=== PATIENT | male | born 1990 | race Caucasian/White ===

== ENCOUNTER 2017-06-15 20:37 | Emergency (ER) | payer MEDICAID ==
--- NOTE | 2017-06-15 21:44 | Emergency Department Record ---
History of Present Illness - General Chief Complaint: Shortness of breath Stated Complaint: SHARP PAIN RT SIDE OF CHEST,SETVE Source: Patient, Family Mode of Arrival: Ambulatory Limitations: No limitations - History of Present Illness Initial Comments: 26 yo male presents with cough with right sided chest pain for one week. He does have a history of collapsed lung three times. [facility]. No fever. No sputum. The cough is dry. No asthma. He is a smoker and continues to smoke. No PCP. The pain is mild if still and worse with cough. MD Complaint: Cough, Pain with inspiration Onset/Timin -: Week(s) Severity: Mild Severity scale (1-10): 6 Quality: Throbbing Consistency: Intermittent Improves With: Nothing Worsens With: Coughing, Exertion Known History Of: Other Context: Other Associated Symptoms: Chest pain, Cough Treatments Prior to Arrival: None - Related Data Previous Rx's Medication Instructions Recorded Hydrocodone/Acetaminophen [[place] 1 tab PO BID PRN #12 tab 06/15/17 5mg/325mg] Naproxen [Naprosyn] 500 mg PO Q12H #20 tab. 06/15/17 Allergies Allergy/AdvReac Type Severity Reaction Status Date / Time morphine Allergy HIVES Verified 06/15/17 21:49 Travel Screening - Travel/Exposure Within Last 30 Days Have you traveled within the last 30 days?: No Review of Systems Constitutional: Denies: Chills, Fever, Malaise, Weakness Eyes: Denies: Eye discharge ENT: Denies: Congestion, Throat pain Respiratory: Reports: Cough, Dyspnea. Denies: Hemoptysis, Stridor, Wheezes Cardiovascular: Reports: As per HPI, Chest pain, Dyspnea on exertion. Denies: Palpitations, Syncope Endocrine: Denies: Fatigue Gastrointestinal: Denies: Abdominal pain, Diarrhea, Nausea, Vomiting Genitourinary: Denies: Dysuria, Frequency, Hematuria Musculoskeletal: Denies: Arthralgia, Back pain, Myalgia Skin: Denies: Bruising, Change in color, Rash Neurological: Denies: Confusion, Headache Psychiatric: Denies: Anxiety Hematological/Lymphatic: Denies: Blood Clots, Easy bleeding, Easy bruising, Swollen glands Past Medical History - SOCIAL HISTORY Smoking Status: Light tobacco smoker (<10/day) Alcohol Use: Rare Drug Use: None - RESPIRATORY Hx Respiratory Disorders: Yes Hx Asthma: Yes Comment:: Collapsed lung x3 - CARDIOVASCULAR Hx Cardio Disorders: No - NEURO Hx Neuro Disorders: No - GI Hx GI Disorders: No - Hx Genitourinary Disorders: No - ENDOCRINE Hx Endocrine Disorders: No - MUSCULOSKELETAL Hx Musculoskeletal Disorders: No - PSYCH Hx Psych Problems: No - HEMATOLOGY/ONCOLOGY Hx Hematology/Oncology Disorders: No Family Medical History Any Significant Family History?: No Physical Exam - General General Appearance: Alert, Oriented x3, Cooperative, No acute distress Limitations: No limitations - Head Head exam: Atraumatic, Normocephalic, Normal inspection - Eye Eye exam: Normal appearance, PERRL. negative: Conjunctival injection, Scleral icterus - ENT ENT exam: Normal exam, Mucous membranes moist Ear exam: Normal external inspection Nasal Exam: Normal inspection Mouth exam: Normal external inspection - Neck Neck exam: Normal inspection, Full ROM. negative: Tenderness - Respiratory Respiratory exam: Chest wall tenderness, Decreased breath sounds (bialterally decreased). negative: Normal lung sounds bilaterally, Accessory muscle use, Prolonged expiratory, Respiratory distress, Rhonchi, Stridor, Wheezes - Cardiovascular Cardiovascular Exam: Regular rate, Normal rhythm, Normal heart sounds Peripheral Pulses: 2+: Radial (R), Radial (L) - GI/Abdominal GI/Abdominal exam: Soft - Rectal Rectal exam: Deferred - exam: Deferred - Extremities Extremities exam: Normal inspection, Full ROM, Normal capillary refill. negative: Tenderness - Back Back exam: Reports: Normal inspection, Full ROM. Denies: Muscle spasm, Rash noted, Tenderness - Neurological Neurological exam: Alert, Normal gait, Oriented X3 - Psychiatric Psychiatric exam: Normal affect, Normal mood - Skin Skin exam: Dry, Intact, Normal color, Warm Course Vital Signs 06/15/17 21:17 Temperature 98.8 F Pulse Rate [ 83 Pulse Ox Probe] Respiratory 18 Rate Blood Pressure 146/72 [Left Arm] Pulse Ox 98 - Reevaluation(s) Reevaluation #1: 06/15/17 21:45 Vitals reviewed No acute changes. No hypoxia. EKG NSR rate 81, intervals normal, axis normal, NS j point elevation (very thin male) likely normal early repolarization. No old. 06/15/17 21:47 06/15/17 22:32 The patient is PERC negative The chest XR is negative The CBC and CMP are negative 06/15/17 22:32 Medical Decision Making - Lab Data Result diagrams: 06/15/17 21:26 06/15/17 21:26 Disposition Disposition: Discharge Clinical Impression: Pleuritic chest pain Disposition: Home, Self-Care Condition: (1) Good Instructions: Pleurisy (ED) Additional Instructions: Stop smoking Return or be seen in the next 1-2 days if not improved Return or be seen immediately if worse Prescriptions: Hydrocodone/Acetaminophen [[place] 5mg/325mg] 1 tab PO BID PRN #12 tab PRN Reason: Pain - General Naproxen [Naprosyn] 500 mg PO Q12H #20 tab.dr Forms: Patient Portal Access Time of Disposition: 22:45 Quality - Quality Measures Quality Measures: N/A - Blood Pressure Screening Does Patient Have Any of the Following: No Blood Pressure Classification: Pre-Hypertensive BP Reading Systolic Measurement: 133 Diastolic Measurement: 74 Screening for High Blood Pressure: < Pre-Hypertensive BP, F/U Documented > [ G8950] Pre-Hypertensive Follow-up Interventions: Referral to alternative/primary care provider.
[2017-06-15] MEDS ORDERED: MORPHINE SULFATE 5 MG/ML PFS IVP ONE (21:45)
[2017-06-15] MEDS ORDERED: KETOROLAC 30 MG/ML VIAL IVP ONE (21:45)
[2017-06-15] MEDS ORDERED: ACETAMINOPHEN 1,000 MG/100 ML BTL IVPB ONE (21:49)
[2017-06-15 22:09] LABS: BASO % 0.3 % (0-6); GRAN % 47.1 % (47-80); HEMATOCRIT 42.6 % (42.0-52.0); HEMOGLOBIN 14.7 gm/dl (14.0-18.0); LYMPH % 41.2 % (16-45); MEAN CELL VOLUME 88.6 fl (81-97); MEAN CORPUSCULAR HEMOGLOBIN 30.6 pg (27-33); MEAN CORPUSCULAR HGB CONC 34.5 g/dl (32-36); MEAN PLATELET VOLUME 11.4 fl (7.4-10.4); MONO % 9.4 % (0-9); PLATELET COUNT 210 K/uL (130-400); RED BLOOD COUNT 4.81 M/uL (4.40-5.70); RED CELL DISTRIBUTION WIDTH 13.4 % (11.5-14.5)
[2017-06-15 22:22] LABS: BLOOD UREA NITROGEN 8 mg/dL (6-20); CREATININE 0.9 mg/dL (0.7-1.2); EST GLOMERULAR FILTRATION RATE > 60 mL/min; INR 1.03; PARTIAL THROMBOPLASTIN TIME 27.5 SECONDS (24.5-39.1); PROTHROMBIN TIME (PATIENT) 11.1 SECONDS (9.5-12.1)
[2017-06-15 22:25] LABS: GLUCOSE,RANDOM 79 mg/dL (74-109)
[2017-06-15] MEDS ORDERED: HYDROCODONE/APAP 5/325MG TABLET PO ONE (22:45)
--- NOTE | 2017-06-16 15:15 | RADIOLOGY REPORT ---
EXAM: CHEST, TWO VIEWS HISTORY: DIFFICULTY IN BREATHING. TECHNIQUE: Frontal and lateral views of the chest were performed. FINDINGS: The heart size is normal. The lung leblanc are clear. No pleural effusion. The osseous structures are normal. IMPRESSION: NEGATIVE CHEST EXAMINATION. JOB NUMBER: [id number] MTDD
== END 2017-06-15 23:00 | disposition home or self-care (01) ==
LOC: ER 20:37
DX: R07.89 Other chest pain (principal); R06.00 Dyspnea, unspecified; F17.210 Nicotine dependence, cigarettes, uncomplicated
CPT/HCPCS: 71020; 80048; 85025; 85610; 85730; 93005; 93010; 96374; 96375; 99284; J1885

== ENCOUNTER 2017-06-17 18:10 | Emergency (ER) | payer MEDICAID ==
[2017-06-17] MEDS ORDERED: KETOROLAC 30 MG/ML VIAL IVP ONE (18:39)
[2017-06-17] MEDS ORDERED: IPRATROPIUM/ALBUTEROL (0.5MG/3MG) NEB INH ONE (18:39)
[2017-06-17] MEDS ORDERED: 0.9 % SODIUM CHLORIDE 1000ML 500 ML IV SCH (18:45)
--- NOTE | 2017-06-17 18:46 | Emergency Department Record ---
History of Present Illness - General Chief Complaint: Difficulty Breathing Stated Complaint: CHEST PAIN Time Seen by Provider: 06/17/17 18:30 Source: Patient Mode of Arrival: EMS Limitations: No limitations - History of Present Illness Initial Comments: 26 yo male returns to ED for evaluation of "sharp chest pains" that began several days ago. Patient reports a history of pneumothorax s/p pleurodesis in the past, denies fevers or cough symptoms, but does report a history of asthma. Patient reports that his pain has been intermittent, but when present, he is unable to take deep breaths and wheeze. Patient denies recent illness symptoms. MD Complaint: Chest pain Onset/Timin -: Days(s) Severity: Moderate Severity scale (1-10): 7 Quality: Aching, Sharp Consistency: Constant, Getting worse Improves With: Rest Worsens With: Coughing, Inspiration, Movement Known History Of: Asthma Treatments Prior to Arrival: None - Related Data Home Oxygen Therapy: No Previous Rx's Medication Instructions Recorded Hydrocodone/Acetaminophen [[place] 1 tab PO BID PRN #12 tab 06/15/17 5mg/325mg] Naproxen [Naprosyn] 500 mg PO Q12H #20 tab. 06/15/17 Allergies Allergy/AdvReac Type Severity Reaction Status Date / Time morphine Allergy HIVES Verified 06/17/17 18:20 Travel Screening - Travel/Exposure Within Last 30 Days Have you traveled within the last 30 days?: No - Travel/Exposure Within Last Year Have you traveled outside the [place] in the last year?: No - Additonal Travel Details Have you been exposed to anyone with a communicable illness?: No - Travel Symptoms Symptom Screening: None Review of Systems Constitutional: Denies: Chills, Fever, Malaise, Night sweats Eyes: Denies: Eye discharge, Eye pain ENT: Denies: Congestion, Ear pain, Epistaxis Respiratory: Denies: Cough, Dyspnea Cardiovascular: Reports: Chest pain. Denies: Dyspnea on exertion, Palpitations , Paroxysmal nocturnal dyspnea Endocrine: Denies: Fatigue, Heat or cold intolerance Gastrointestinal: Denies: Abdominal pain, Nausea, Vomiting Genitourinary: Denies: Incontinence, Retention Musculoskeletal: Denies: Arthralgia, Back pain, Gout, Joint swelling Skin: Denies: Bruising, Change in color Neurological: Denies: Abnormal gait, Confusion, Headache Psychiatric: Denies: Anxiety Hematological/Lymphatic: Denies: Anemia, Blood Clots Past Medical History - SOCIAL HISTORY Smoking Status: Light tobacco smoker (<10/day) Alcohol Use: Rare Drug Use: None - RESPIRATORY Hx Respiratory Disorders: Yes Hx Asthma: Yes Comment:: Collapsed lung x3 - CARDIOVASCULAR Hx Cardio Disorders: No - NEURO Hx Neuro Disorders: No - GI Hx GI Disorders: No - Hx Genitourinary Disorders: No - ENDOCRINE Hx Endocrine Disorders: No - MUSCULOSKELETAL Hx Musculoskeletal Disorders: No - PSYCH Hx Depression: Yes Comment:: bipolar - HEMATOLOGY/ONCOLOGY Hx Hematology/Oncology Disorders: No Family Medical History Any Significant Family History?: Yes Physical Exam - General General Appearance: Alert, Oriented x3, Cooperative Limitations: No limitations - Head Head exam: Atraumatic, Normocephalic, Normal inspection Head exam detail: negative: Abrasion, Contusion, Denise's sign, General tenderness, Hematoma, Laceration - Eye Eye exam: Normal appearance. negative: Conjunctival injection, Periorbital swelling, Periorbital tenderness, Scleral icterus - ENT Ear exam: negative: Auricular hematoma, Auricular trauma Nasal Exam: negative: Active bleeding, Discharge, Dried blood Mouth exam: negative: Drooling, Laceration, Muffled voice, Tongue elevation - Neck Neck exam: Normal inspection. negative: Meningismus, Tenderness - Respiratory Respiratory exam: Normal lung sounds bilaterally. negative: Respiratory distress, Rhonchi, Stridor, Wheezes - Cardiovascular Cardiovascular Exam: Regular rate, Normal rhythm, Normal heart sounds - GI/Abdominal GI/Abdominal exam: Soft. negative: Pulsatile mass, Rebound, Rigid - Rectal Rectal exam: Deferred - exam: Deferred - Extremities Extremities exam: Normal inspection. negative: Pedal edema, Tenderness - Back Back exam: Denies: CVA tenderness (R), CVA tenderness (L) - Neurological Neurological exam: Alert, Normal gait, Oriented X3 - Psychiatric Psychiatric exam: Normal affect, Normal mood - Skin Skin exam: Normal color. negative: Abrasion Type of lesion: negative: abrasion Course Vital Signs 06/17/17 18:13 Temperature 98.8 F Pulse Rate 84 Respiratory 14 Rate Blood Pressure 122/68 Pulse Ox 98 - Reevaluation(s) Reevaluation #1: 06/17/17 18:53 EKG: NSR 66 Normal axis, normal intervals J-point elevation, no acute ST-T wave changes Unchanged from 06/15/17 Reevaluation #2: 06/17/17 19:34 Labs reviewed and are grossly unremarkable for an acute process. D-Dimer is negative. CXR: No acute process Patient was reassessed, playing a coloring game on his mobile phone and is well appearing on examination, was updated on all results,. Patient reports that duoneb did not significantly improve his symptoms, unlikely the result of an asthma exacerbation. Patient reports that he has Naprosyn at home for pleurisy , appears stable and comfortable on examination for discharge home at this time. Medical Decision Making - Lab Data Result diagrams: 06/17/17 18:45 06/17/17 18:45 Disposition Disposition: Discharge Clinical Impression: Pleuritic chest pain Disposition: Home, Self-Care Condition: (2) Stable Instructions: Pleurisy (ED) Additional Instructions: Return to ED if your symptoms worsen or if you have any concerns. Continue Naprosyn as directed. Follow-up with your family doctor in 3-5 days as directed. Forms: Patient Portal Access Time of Disposition: 19:40 Quality - Quality Measures Quality Measures: N/A - Blood Pressure Screening Does Patient Have Any of the Following: No Blood Pressure Classification: Pre-Hypertensive BP Reading Systolic Measurement: 122 Diastolic Measurement: 68 Screening for High Blood Pressure: < Pre-Hypertensive BP, F/U Documented > [ G8950] Pre-Hypertensive Follow-up Interventions: Referral to alternative/primary care provider.
[2017-06-17 18:52] LABS: BASO % 0.6 % (0-6); EOS % 3.1 % (0-6); GRAN % 41.1 % (47-80); HEMATOCRIT 41.5 % (42.0-52.0); HEMOGLOBIN 14.2 gm/dl (14.0-18.0); LYMPH % 46.1 % (16-45); MEAN CELL VOLUME 88.7 fl (81-97); MEAN CORPUSCULAR HEMOGLOBIN 30.3 pg (27-33); MEAN CORPUSCULAR HGB CONC 34.2 g/dl (32-36); MEAN PLATELET VOLUME 10.9 fl (7.4-10.4); MONO % 9.1 % (0-9); PLATELET COUNT 195 K/uL (130-400); RED BLOOD COUNT 4.68 M/uL (4.40-5.70); RED CELL DISTRIBUTION WIDTH 13.2 % (11.5-14.5); WHITE BLOOD COUNT W/O DIFF 4.8 K/uL (4.2-12.2)
[2017-06-17 19:07] LABS: BLOOD UREA NITROGEN 7 mg/dL (6-20); CREATININE 0.8 mg/dL (0.7-1.2); EST GLOMERULAR FILTRATION RATE > 60 mL/min; TOTAL PROTEIN 6.9 g/dL (6.6-8.7)
[2017-06-17 19:09] LABS: GLUCOSE,RANDOM 93 mg/dL (74-109)
[2017-06-17 19:12] LABS: ALBUMIN 4.6 g/dL (4.0-5.0); ALKALINE PHOSPHATASE 57 U/L (40-129); ALT/SGPT 17 U/L (<41); AST/SGOT 16 U/L (10.0-50.0)
--- NOTE | 2017-06-19 20:17 | RADIOLOGY REPORT ---
EXAM: CHEST 2 VIEWS HISTORY: CHEST PAIN. TECHNIQUE: PA and lateral views. COMPARISON: Two-view chest 06/15/17. Report of the prior study not as yet available within PACS. FINDINGS: Heart size is normal. No definite acute infiltrate seen. No pleural effusion or pneumothorax evident. Minor lower thoracic curve to the left may simply be due to positioning or spasm. IMPRESSION: MINOR LOWER THORACIC CURVE TO THE LEFT. NO DEFINITE ACUTE INFILTRATE SEEN. JOB NUMBER: [id number] MTDD
== END 2017-06-17 19:53 | disposition home or self-care (01) ==
LOC: ER 18:10
DX: R07.89 Other chest pain (principal); F17.210 Nicotine dependence, cigarettes, uncomplicated
CPT/HCPCS: 99284 ×2; 85025; 80053; 85379; 71020; 94640; 93005; 93010; J1885; J7030

== ENCOUNTER 2017-07-02 04:45 | Emergency (ER) | payer MEDICAID ==
[2017-07-02] MEDS ORDERED: IPRATROPIUM/ALBUTEROL (0.5MG/3MG) NEB INH ONE (04:48)
[2017-07-02] MEDS ORDERED: METHYLPREDNISOLONE PF 125MG/VIAL IVP ONE (04:48)
--- NOTE | 2017-07-02 04:58 | Emergency Department Record ---
History of Present Illness - General Chief Complaint: Shortness of breath Stated Complaint: CHEST PAIN Time Seen by Provider: 07/02/17 04:48 Source: Patient Mode of Arrival: Ambulatory Limitations: No limitations - History of Present Illness Initial Comments: 26 yo male presents with shortness breath, cough, and a right sided feeling like air is moving in his chest. He has a history of asthma and 3 prior spontaneous pneumothoracies. He is S/P pleurodesis at [facility] 2 years ago. He has had this pain since being seen in the ED on June 15. The symptoms fluctuate in intensity but have not resolved in the last 2.5 weeks. His most recent visit was the [facility] on 06.28.17. His CXR then was negative for acute process. He does continue to smoke. He has not take his Prednisone that he was prescribed. MD Complaint: "Asthma attack", Chest pain, Cough, Pain with inspiration, Shortness of breath -: Hour(s) Severity: Moderate Quality: Aching Improves With: Nothing Worsens With: Coughing, Inspiration Known History Of: Asthma Associated Symptoms: Chest pain, Cough Treatments Prior to Arrival: None - Related Data Previous Rx's Medication Instructions Recorded Hydrocodone/Acetaminophen [[place] 1 each PO Q8H #12 tablet 07/02/17 5-325 Tablet] Prednisone [Prednisone 20Mg] 20 mg PO BID #10 tab 07/02/17 Allergies Allergy/AdvReac Type Severity Reaction Status Date / Time morphine Allergy HIVES Verified 07/02/17 04:52 Review of Systems Constitutional: Denies: Chills, Fever, Malaise, Weakness Eyes: Denies: Eye discharge, Eye pain ENT: Denies: Congestion, Throat pain Respiratory: Reports: Cough, Dyspnea, Wheezes Cardiovascular: Reports: Chest pain. Denies: Dyspnea on exertion, Edema, Palpitations, Syncope Endocrine: Denies: Fatigue Gastrointestinal: Denies: Abdominal pain, Diarrhea, Nausea, Vomiting Genitourinary: Denies: Dysuria, Frequency, Hematuria Musculoskeletal: Denies: Arthralgia, Back pain, Myalgia, Neck pain Skin: Denies: Bruising, Change in color Neurological: Denies: Confusion, Headache Psychiatric: Denies: Anxiety Hematological/Lymphatic: Denies: Blood Clots, Easy bleeding, Easy bruising, Swollen glands Past Medical History - SOCIAL HISTORY Smoking Status: Light tobacco smoker (<10/day) Drug Use: None - RESPIRATORY Hx Respiratory Disorders: Yes Hx Asthma: Yes Comment:: Collapsed lung x3 - CARDIOVASCULAR Hx Cardio Disorders: No - NEURO Hx Neuro Disorders: No - GI Hx GI Disorders: No - Hx Genitourinary Disorders: No - ENDOCRINE Hx Endocrine Disorders: No - MUSCULOSKELETAL Hx Musculoskeletal Disorders: No - PSYCH Hx Depression: Yes Comment:: bipolar - HEMATOLOGY/ONCOLOGY Hx Hematology/Oncology Disorders: No Physical Exam - General General Appearance: Alert, Oriented x3, Cooperative, No acute distress Limitations: No limitations - Head Head exam: Normal inspection - Eye Eye exam: Normal appearance. negative: Conjunctival injection, Scleral icterus - ENT ENT exam: Normal exam, Mucous membranes moist, Normal orophraynx Ear exam: Normal external inspection. negative: External canal tenderness Nasal Exam: Normal inspection. negative: Sinus tenderness Mouth exam: Normal external inspection, Tongue normal Teeth exam: Normal inspection. negative: Dental caries Throat exam: Normal inspection. negative: Tonsillar erythema, Tonsillar exudate - Neck Neck exam: Normal inspection, Full ROM. negative: Tenderness - Respiratory Respiratory exam: Decreased breath sounds, Wheezes. negative: Normal lung sounds bilaterally, Accessory muscle use, Chest wall tenderness, Respiratory distress, Rhonchi, Stridor - Cardiovascular Cardiovascular Exam: Regular rate, Normal rhythm, Normal heart sounds Peripheral Pulses: 2+: Radial (R), Radial (L) - GI/Abdominal GI/Abdominal exam: Soft - Rectal Rectal exam: Deferred - exam: Deferred - Extremities Extremities exam: Normal inspection, Full ROM, Normal capillary refill. negative: Pedal edema, Tenderness - Back Back exam: Denies: CVA tenderness (R), CVA tenderness (L) - Neurological Neurological exam: Alert, Oriented X3 - Psychiatric Psychiatric exam: Normal affect, Normal mood - Skin Skin exam: Dry, Intact, Normal color, Warm Course The labs were reviewed. No acute changes. Given 4th encounter for the same symptoms this month I recommended CT of chest. Pt agrees. - Reevaluation(s) Reevaluation #1: 07/02/17 05:02 The vitals were reviewed No acute changes. No fever, hypoxia, tachycardia The EMR was reviewed for prior visits including 3 CXR this month for the symptoms 07/02/17 06:[address] scan was reviewed. No acute process. Small air filled cysts in lower lungs. Linear atelectasis. No pneumothorax. No Effusion. No PE. Medical Decision Making - Lab Data Result diagrams: 07/02/17 04:55 07/02/17 04:55 Disposition Disposition: Discharge Clinical Impression: Pleuritic chest pain Asthma exacerbation Qualifiers: Asthma severity: mild Asthma persistence: intermittent Qualified Code(s): J45.21 - Mild intermittent asthma with (acute) exacerbation Disposition: Home, Self-Care Condition: (1) Good Instructions: Asthma (ED), Pleurisy (ED) Additional Instructions: Call your doctors for close follow up of this ED visit Take the Prednisone as directed Stop smoking. This is causing early damage to your lungs. Prescriptions: Hydrocodone/Acetaminophen [[place] 5-325 Tablet] 1 each PO Q8H #12 tablet Prednisone [Prednisone 20Mg] 20 mg PO BID #10 tab Forms: Patient Portal Access Time of Disposition: 06:03 Quality - Quality Measures Quality Measures: N/A - Blood Pressure Screening Does Patient Have Any of the Following: No Blood Pressure Classification: Pre-Hypertensive BP Reading Systolic Measurement: 134 Diastolic Measurement: 89 Screening for High Blood Pressure: < Pre-Hypertensive BP, F/U Documented > [ G8950] Pre-Hypertensive Follow-up Interventions: Referral to alternative/primary care provider.
[2017-07-02 05:02] LABS: BASO % 0.4 % (0-6); EOS % 3.1 % (0-6); GRAN % 37.2 % (47-80); HEMATOCRIT 43.6 % (42.0-52.0); HEMOGLOBIN 15.1 gm/dl (14.0-18.0); MEAN CELL VOLUME 89.2 fl (81-97); MEAN CORPUSCULAR HEMOGLOBIN 30.9 pg (27-33); MEAN CORPUSCULAR HGB CONC 34.6 g/dl (32-36); MEAN PLATELET VOLUME 11.2 fl (7.4-10.4); MONO % 9.3 % (0-9); PLATELET COUNT 202 K/uL (130-400); RED BLOOD COUNT 4.89 M/uL (4.40-5.70); RED CELL DISTRIBUTION WIDTH 13.5 % (11.5-14.5); WHITE BLOOD COUNT W/O DIFF 8.1 K/uL (4.2-12.2)
[2017-07-02 05:14] LABS: INR 0.95; PARTIAL THROMBOPLASTIN TIME 27.3 SECONDS (24.5-39.1); PROTHROMBIN TIME (PATIENT) 10.3 SECONDS (9.5-12.1)
[2017-07-02 05:16] LABS: BLOOD UREA NITROGEN 11 mg/dL (6-20); CREATININE 0.9 mg/dL (0.7-1.2); EST GLOMERULAR FILTRATION RATE > 60 mL/min
[2017-07-02 05:19] LABS: GLUCOSE,RANDOM 105 mg/dL (74-109)
--- NOTE | 2017-07-02 23:47 | CT ANGIOGRAM REPORT ---
EXAM: CT ANGIOGRAM CHEST CTA w contrast HISTORY: CHEST PAIN AND CHEST WALL PAIN. PREVIOUS SURGERY SIX MONTHS PRIOR. EVALUATE FOR PULMONARY EMBOLUS. REPORTED SURGERY FOR PLEURODESIS. TECHNIQUE: Routine CT angiography images of the chest were obtained following intravenous administration of contrast. Amount and type of contrast in the medical record. 3D/MIP images obtained for further assessment. COMPARISON: None. FINDINGS: Heart is not enlarged. No pericardial effusion. Aorta enhances normally with contrast. No central filling defects within the pulmonary arteries to suggest acute PE. No mediastinal or hilar lymph node enlargement. Lungs are clear without focal consolidation, pleural effusion, or pneumothorax. Tiny cysts are noted within the lungs, especially right lower lobe. Visualized upper abdomen is unremarkable. No acute osseous abnormality. IMPRESSION: NO ACUTE INTRATHORACIC ABNORMALITY. SPECIFICALLY, NO EVIDENCE FOR PULMONARY EMBOLUS. JOB NUMBER: [id number] MTDD
== END 2017-07-02 06:12 | disposition home or self-care (01) ==
LOC: ER 04:45
DX: R07.89 Other chest pain (principal); J45.21 Mild intermittent asthma with (acute) exacerbation; R06.02 Shortness of breath; F17.210 Nicotine dependence, cigarettes, uncomplicated
CPT/HCPCS: 99284 ×2; 96374; 85025; 85730; 85610; 80048; 71275; 94640; Q9967; J2930

== ENCOUNTER 2017-07-13 22:53 | Emergency (ER) | payer MEDICAID ==
--- NOTE | 2017-07-13 23:12 | Emergency Department Record ---
History of Present Illness - General Chief Complaint: Back Pain/Injury Stated Complaint: BACK PAIN Time Seen by Provider: 07/13/17 23:02 Source: Patient Mode of Arrival: Ambulatory Limitations: No limitations - History of Present Illness Initial Comments: The patient is here due to a one day hx of low back pain. The pain was present when the patient woke up this AM. It is a sharp aching pain in the upper lumbar area that intermittently radiates to the sides. Movement and bending and twisting increases the pain. There is no radiation of pain down the legs and no leg numbness, weakness or any bowel or bladder issues. The patient states he has a long hx of similar pain for years and it flares up every now and then. He denies any injury, fall or trauma. The patient states the pain occurs every other month or so. MD Complaint: Back pain Onset/Timin -: Hour(s) Place: Home Severity: Moderate Severity scale (1-10): 7 Improves With: None Worsens With: None Associated Symptoms: Denies other symptoms Treatments Prior to Arrival: Other Treatment Prior to Arrival Comment:: "nothing" - Related Data Previous Rx's Medication Instructions Recorded Cyclobenzaprine HCl [Flexeril] 10 mg PO TID PRN #20 tablet 07/13/17 Naproxen [Naprosyn] 500 mg PO BID #14 tablet. 07/13/17 Allergies Allergy/AdvReac Type Severity Reaction Status Date / Time morphine Allergy HIVES Verified 07/13/17 23:02 Travel Screening - Travel/Exposure Within Last 30 Days Have you traveled within the last 30 days?: No - Travel/Exposure Within Last Year Have you traveled outside the [place] in the last year?: No - Additonal Travel Details Have you been exposed to anyone with a communicable illness?: No - Travel Symptoms Symptom Screening: None Review of Systems Constitutional: Denies: Chills, Fever Eyes: Denies: Eye discharge ENT: Denies: Congestion Respiratory: Denies: Cough, Dyspnea Past Medical History - SOCIAL HISTORY Smoking Status: Light tobacco smoker (<10/day) Alcohol Use: None Drug Use: None - RESPIRATORY Hx Respiratory Disorders: Yes Hx Asthma: Yes Comment:: Collapsed lung x3 - CARDIOVASCULAR Hx Cardio Disorders: No - NEURO Hx Neuro Disorders: No - GI Hx GI Disorders: No - Hx Genitourinary Disorders: No - ENDOCRINE Hx Endocrine Disorders: No - MUSCULOSKELETAL Hx Musculoskeletal Disorders: No - PSYCH Hx Psych Problems: No Hx Depression: Yes Comment:: bipolar - HEMATOLOGY/ONCOLOGY Hx Hematology/Oncology Disorders: No Family Medical History Any Significant Family History?: No Physical Exam - General General Appearance: Alert, Oriented x3, Cooperative, No acute distress - Head Head exam: Atraumatic, Normocephalic, Normal inspection - Eye Eye exam: Normal appearance, PERRL - Neck Neck exam: Normal inspection, Full ROM. negative: Tenderness - Respiratory Respiratory exam: Normal lung sounds bilaterally. negative: Respiratory distress - Cardiovascular Cardiovascular Exam: Regular rate, Normal rhythm, Normal heart sounds - GI/Abdominal GI/Abdominal exam: Soft, Normal bowel sounds. negative: Tenderness - Back Back exam: Reports: Normal inspection, Full ROM, Paraspinal tenderness (There is mild upper lumbar paraspinal tenderness bilaterally. ). Denies: Muscle spasm , Rash noted, Tenderness, Vertebral tenderness - Neurological Neurological exam: Alert, Normal gait (The patient is walking with no difficulty.), Oriented X3, Reflexes normal (The patellar and achilles reflexes are 2+ and equal bilaterally.), Other (Neg SLR bilaterally.). negative: Abnormal gait, Motor sensory deficit (The motor and sensory exams are 5/5 and equal bilaterally.) Course Vital Signs 07/13/17 07/13/17 22:56 22:59 Temperature 98.6 F 98.6 F Pulse Rate [ 100 H Pulse Ox Probe] Respiratory 20 Rate Blood Pressure 127/73 [Left Arm] Pulse Ox 98 - Reevaluation(s) Reevaluation #1: The patient is doing better at this time. He is resting comfortably on the bed and states the pain is resolving like it normally does. There is no radiation of the pain or any leg numbness, weakness, or any bowel or bladder issues. I did explain to the patient he is to go home and rest and take the pain medicine and muscle relaxer. He is to see his PCP if not better in 2-3 days. 07/13/17 23:33 Reevaluation #2: The patient is doing a lot better at the time of discharge. He is ambulating normally with no obvious pain or difficulty. 07/13/17 23:44 Disposition Disposition: Discharge Clinical Impression: Chronic back pain Qualifiers: Back pain location: back pain in unspecified location Back pain laterality: unspecified Qualified Code(s): M54.9 - Dorsalgia, unspecified Disposition: Home, Self-Care Condition: (2) Stable Instructions: Chronic Back Pain (ED) Additional Instructions: Please rest when possible and take the naprosyn and flexeril. Please see your PCP early next week if not better. Return to the ER for any increased pain, leg weakness, numbness, or any bowel or bladder issues. Prescriptions: Cyclobenzaprine HCl [Flexeril] 10 mg PO TID PRN #20 tablet PRN Reason: Pain Naproxen [Naprosyn] 500 mg PO BID #14 tablet.dr Forms: Patient Portal Access Time of Disposition: 23:36 Quality - Quality Measures Quality Measures: N/A - Blood Pressure Screening View Details: Yes Does Patient Have Any of the Following: No Blood Pressure Classification: Pre-Hypertensive BP Reading Systolic Measurement: 127 Diastolic Measurement: 73 Screening for High Blood Pressure: < Pre-Hypertensive BP, F/U Documented > [ G8950] Pre-Hypertensive Follow-up Interventions: Referral to alternative/primary care provider.
[2017-07-13] MEDS: KETOROLAC 30 MG/ML VIAL IM ONE (23:15)
[2017-07-13] MEDS: ORPHENADRINE CITRATE 60MG/2ML VIAL IM ONE (23:15)
[2017-07-13] MEDS: HYDROCODONE/APAP 5/325MG TABLET PO ONE (23:41)
== END 2017-07-13 23:44 | disposition home or self-care (01) ==
LOC: ER 22:53
DX: G89.29 Other chronic pain (principal); M54.5 Low back pain; F17.210 Nicotine dependence, cigarettes, uncomplicated
CPT/HCPCS: 96372; 99283; J1885; J2360

== ENCOUNTER 2017-08-05 23:38 | Emergency (ER) | payer MEDICAID ==
[2017-08-06] MEDS ORDERED: IPRATROPIUM/ALBUTEROL (0.5MG/3MG) NEB INH ONE (00:03)
[2017-08-06] MEDS ORDERED: KETOROLAC 30 MG/ML VIAL IVP ONE (00:07)
[2017-08-06 00:11] LABS: BASO % 0.3 % (0-6); EOS % 2.1 % (0-6); GRAN % 50.6 % (47-80); LYMPH % 38.5 % (16-45); MEAN CELL VOLUME 89.1 fl (81-97); MEAN CORPUSCULAR HEMOGLOBIN 30.4 pg (27-33); MEAN CORPUSCULAR HGB CONC 34.1 g/dl (32-36); MEAN PLATELET VOLUME 10.9 fl (7.4-10.4); MONO % 8.5 % (0-9); PLATELET COUNT 210 K/uL (130-400); RED BLOOD COUNT 4.94 M/uL (4.40-5.70); RED CELL DISTRIBUTION WIDTH 13.2 % (11.5-14.5); WHITE BLOOD COUNT W/O DIFF 7.3 K/uL (4.2-12.2)
--- NOTE | 2017-08-06 00:14 | Emergency Department Record ---
History of Present Illness - General Chief Complaint: Chest Pain Stated Complaint: CHEST PAIN, STEVE Time Seen by Provider: 08/05/17 23:50 Source: Patient Mode of Arrival: Ambulatory Limitations: No limitations - History of Present Illness Initial Comments: pt has r sided chest pain and short of breath like he frequently gets since he had pneumothoraxes. he denies fever or sputum production Complaint: Chest pain Onset/Timin -: Days(s) Onset: During exertion Pain Location: Right chest Pain Radiation: None Severity: Moderate Severity scale (1-10): 8 Quality: Sharp Consistency: Constant, Getting worse Improves With: Rest Worsens With: Inspiration, Movement Other Symptoms: Burping Treatments Prior to Arrival: None - Related Data Previous Rx's Medication Instructions Recorded Cyclobenzaprine HCl [Flexeril] 10 mg PO TID PRN #20 tablet 07/13/17 Hydrocodone/Acetaminophen [[place] 1 each PO QID #5 tablet 08/06/17 5-325 Tablet] Ibuprofen [Motrin 600Mg] 600 mg PO Q6H #20 tablet 08/06/17 Allergies Allergy/AdvReac Type Severity Reaction Status Date / Time morphine Allergy HIVES Unverified 07/27/17 11:16 Travel Screening - Travel/Exposure Within Last 30 Days Have you traveled within the last 30 days?: No - Travel Symptoms Symptom Screening: None Review of Systems Reviewed: No additional complaints except as noted below Constitutional: Reports: As per HPI. Denies: Chills, Fever, Malaise, Night sweats, Weakness, Weight change Eyes: Reports: As per HPI. Denies: Eye discharge, Eye pain, Photophobia, Vision change ENT: Reports: As per HPI. Denies: Congestion, Dental pain, Ear pain, Epistaxis , Hearing loss, Throat pain Respiratory: Reports: As per HPI, Cough, Dyspnea. Denies: Hemoptysis, Stridor, Wheezes Cardiovascular: Reports: As per HPI, Chest pain. Denies: Arrhythmia, Dyspnea on exertion, Edema, Murmurs, Orthopnea, Palpitations, Paroxysmal nocturnal dyspnea, Rheumatic Fever, Syncope Endocrine: Reports: As per HPI. Denies: Fatigue, Heat or cold intolerance, Polydipsia, Polyuria Gastrointestinal: Reports: As per HPI. Denies: Abdominal pain, Constipation, Diarrhea, Hematemesis, Hematochezia, Melena, Nausea, Vomiting Genitourinary: Reports: As per HPI. Denies: Dysuria, Frequency, Hematuria, Incontinence, Retention, Testicular pain, Testicular mass, Urgency Musculoskeletal: Reports: As per HPI. Denies: Arthralgia, Back pain, Gout, Joint swelling, Myalgia, Neck pain Skin: Reports: As per HPI. Denies: Bruising, Change in color, Change in hair/ nails, Lesions, Pruritus, Rash Neurological: Reports: As per HPI. Denies: Abnormal gait, Confusion, Headache, Numbness, Paresthesias, Seizure, Tingling, Tremors, Vertigo, Weakness Psychiatric: Reports: As per HPI. Denies: Anxiety, Auditory hallucinations, Depression, Homicidal thoughts, Suicidal thoughts, Visual hallucinations Hematological/Lymphatic: Reports: As per HPI. Denies: Anemia, Blood Clots, Easy bleeding, Easy bruising, Swollen glands Past Medical History - SOCIAL HISTORY Smoking Status: Light tobacco smoker (<10/day) - RESPIRATORY Hx Respiratory Disorders: Yes Hx Asthma: Yes Comment:: Collapsed lung x3 - CARDIOVASCULAR Hx Cardio Disorders: No - NEURO Hx Neuro Disorders: No - GI Hx GI Disorders: No - Hx Genitourinary Disorders: No - ENDOCRINE Hx Endocrine Disorders: No - MUSCULOSKELETAL Hx Musculoskeletal Disorders: No - PSYCH Hx Psych Problems: No Hx Depression: Yes Comment:: bipolar - HEMATOLOGY/ONCOLOGY Hx Hematology/Oncology Disorders: No Family Medical History Any Significant Family History?: Yes Physical Exam - General General Appearance: Alert, Oriented x3, Cooperative, Mild distress - Head Head exam: Normal inspection - Eye Eye exam: Normal appearance, PERRL, EOMI Pupils: Normal accommodation - ENT ENT exam: Normal exam, Mucous membranes moist, Normal external ear exam, Normal orophraynx Ear exam: Normal external inspection. negative: External canal tenderness Nasal Exam: Normal inspection. negative: Discharge, Sinus tenderness Mouth exam: Normal external inspection, Tongue normal Teeth exam: Normal inspection. negative: Dental caries Throat exam: Normal inspection. negative: Tonsillar erythema, Tonsillar exudate - Neck Neck exam: Normal inspection, Full ROM. negative: Tenderness - Respiratory Respiratory exam: Decreased breath sounds. negative: Respiratory distress - Cardiovascular Cardiovascular Exam: Regular rate, Normal rhythm, Normal heart sounds - GI/Abdominal GI/Abdominal exam: Soft, Normal bowel sounds. negative: Tenderness - Rectal Rectal exam: Deferred - exam: Deferred - Extremities Extremities exam: Normal inspection, Full ROM, Normal capillary refill. negative: Tenderness - Back Back exam: Reports: Normal inspection, Full ROM. Denies: Muscle spasm, Rash noted, Tenderness - Neurological Neurological exam: Alert, CN II-XII intact, Normal gait, Oriented X3 - Psychiatric Psychiatric exam: Normal affect, Normal mood - Skin Skin exam: Dry, Intact, Normal color, Warm Course Vital Signs 08/06/17 00:07 Pulse Rate 88 Respiratory 18 Rate Pulse Ox 100 Medical Decision Making - Lab Data Result diagrams: 08/06/17 00:00 08/06/17 00:00 Disposition Disposition: Discharge Clinical Impression: Pleurisy Disposition: Home, Self-Care Condition: (1) Good Instructions: Pleurisy (ED) Additional Instructions: follow up with family doctor. return sooner if worse. Prescriptions: Hydrocodone/Acetaminophen [[place] 5-325 Tablet] 1 each PO QID #5 tablet Ibuprofen [Motrin 600Mg] 600 mg PO Q6H #20 tablet Forms: Patient Portal Access Quality - Quality Measures Quality Measures: N/A - Blood Pressure Screening Does Patient Have Any of the Following: No Blood Pressure Classification: Pre-Hypertensive BP Reading Systolic Measurement: 126 Diastolic Measurement: 82 Screening for High Blood Pressure: < Pre-Hypertensive BP, F/U Documented > [ G8950] Pre-Hypertensive Follow-up Interventions: Follow-up with rescreen every year.
[2017-08-06 00:42] LABS: BLOOD UREA NITROGEN 6 mg/dL (6-20); CREATININE 0.9 mg/dL (0.7-1.2); EST GLOMERULAR FILTRATION RATE > 60 mL/min
[2017-08-06 00:43] LABS: TOTAL PROTEIN 7.5 g/dL (6.6-8.7)
[2017-08-06 00:45] LABS: GLUCOSE,RANDOM 106 mg/dL (74-109)
[2017-08-06 00:48] LABS: ALB/GLOB RATIO 1.7 (1.1-1.8); ALBUMIN 4.7 g/dL (4.0-5.0); ALKALINE PHOSPHATASE 72 U/L (40-129); ALT/SGPT 17 U/L (<41); AST/SGOT 15 U/L (10.0-50.0)
[2017-08-06] MEDS ORDERED: METHYLPREDNISOLONE PF 125MG/VIAL IVP ONE (01:20)
[2017-08-06] MEDS ORDERED: HYDROCODONE/APAP 5/325MG TABLET PO ONE (01:20)
--- NOTE | 2017-08-06 21:18 | RADIOLOGY REPORT ---
EXAM: CHEST 2 VIEWS HISTORY: RIGHT-SIDED SHARP CHEST PAINS WITH COUGHING. TECHNIQUE: Chest, two views. COMPARISON: 06/28/17. FINDINGS: Asymmetrical right apical pleural scarring. Lungs and pleural spaces otherwise clear. There may be a small calcified granuloma right lung base. Cardiomediastinal silhouette stable. IMPRESSION: STABLE CHEST. JOB NUMBER: [id number] MTDD
== END 2017-08-06 01:40 | disposition home or self-care (01) ==
LOC: ER 23:38
DX: R09.1 Pleurisy (principal); R06.02 Shortness of breath; R05 Cough; F17.210 Nicotine dependence, cigarettes, uncomplicated
CPT/HCPCS: 99284 ×2; 96374; 96375; 85025; 80053; 84484; 85379; 71046; 94640; 93005; 93010; J1885; J2930

== ENCOUNTER 2017-10-16 19:12 | Emergency (ER) | payer MEDICAID ==
[2017-10-16] MEDS ORDERED: METHYLPREDNISOLONE PF 125MG/VIAL IVP ONE (19:44)
[2017-10-16] MEDS ORDERED: KETOROLAC 30 MG/ML VIAL IVP ONE (19:44)
--- NOTE | 2017-10-16 19:48 | Emergency Department Record ---
History of Present Illness - General Chief Complaint: Shortness of breath Stated Complaint: STEVE,LIGHT HEADED,CHEST PAIN,COUGH Time Seen by Provider: 10/16/17 19:25 Source: Patient Mode of Arrival: Ambulatory Limitations: No limitations - History of Present Illness Initial Comments: 27 yo male presents with recurrent cough, chest pain, and a feeling of shortness of breath. He has a history of recurrent pneumothorax treated at [facility] with pleurodesis. He has had similar pain return many times in the past. The current symptoms started one week ago. He has a cough with clear sputum. No fever. He does continue to smoke. MD Complaint: Chest pain, Shortness of breath -: Week(s) (1) Severity: Moderate Quality: Aching Consistency: Constant Improves With: Rest Worsens With: Coughing Known History Of: Other Associated Symptoms: Chest pain, Cough Treatments Prior to Arrival: None - Related Data Previous Rx's Medication Instructions Recorded Azithromycin [Zithromax] 250 mg PO DAILY #6 tablet 10/16/17 Benzonatate [Tessalon] 1 cap PO Q8H PRN #20 cap 10/16/17 Naproxen [Naprosyn] 500 mg PO BID #20 tablet 10/16/17 Allergies Allergy/AdvReac Type Severity Reaction Status Date / Time morphine Allergy HIVES Unverified 08/31/17 11:25 Travel Screening - Travel/Exposure Within Last 30 Days Have you traveled within the last 30 days?: No - Travel/Exposure Within Last Year Have you traveled outside the [place] in the last year?: No - Additonal Travel Details Have you been exposed to anyone with a communicable illness?: No - Travel Symptoms Symptom Screening: None Review of Systems Constitutional: Denies: Chills, Fever, Malaise, Weakness Eyes: Denies: Eye discharge ENT: Denies: Congestion, Ear pain, Epistaxis, Throat pain Respiratory: Reports: Cough, Dyspnea. Denies: Hemoptysis, Stridor, Wheezes Cardiovascular: Reports: Chest pain. Denies: Edema, Palpitations, Syncope Endocrine: Denies: Fatigue, Polydipsia, Polyuria Gastrointestinal: Denies: Abdominal pain, Diarrhea, Nausea, Vomiting Genitourinary: Denies: Dysuria, Frequency, Hematuria Musculoskeletal: Denies: Arthralgia, Back pain, Joint swelling, Myalgia Skin: Denies: Bruising, Change in color, Rash Neurological: Denies: Confusion, Headache, Numbness, Weakness Psychiatric: Denies: Anxiety Hematological/Lymphatic: Denies: Blood Clots, Easy bleeding, Easy bruising, Swollen glands Past Medical History - SOCIAL HISTORY Smoking Status: Light tobacco smoker (<10/day) - RESPIRATORY Hx Respiratory Disorders: Yes Hx Asthma: Yes Comment:: Collapsed lung x3 - CARDIOVASCULAR Hx Cardio Disorders: No - NEURO Hx Neuro Disorders: No - GI Hx GI Disorders: No - Hx Genitourinary Disorders: No - ENDOCRINE Hx Endocrine Disorders: No - MUSCULOSKELETAL Hx Musculoskeletal Disorders: No - PSYCH Hx Psych Problems: No Hx Depression: Yes Comment:: bipolar - HEMATOLOGY/ONCOLOGY Hx Hematology/Oncology Disorders: No Family Medical History Any Significant Family History?: No Physical Exam - General General Appearance: Alert, Oriented x3, Cooperative, No acute distress, Other ( Appears calm and relaxed) Limitations: No limitations - Head Head exam: Atraumatic, Normocephalic, Normal inspection - Eye Eye exam: Normal appearance, PERRL. negative: Conjunctival injection, Scleral icterus - ENT ENT exam: Normal exam, Mucous membranes moist, Normal orophraynx Ear exam: Normal external inspection Nasal Exam: Normal inspection Mouth exam: Normal external inspection Teeth exam: Normal inspection Throat exam: Normal inspection - Neck Neck exam: Normal inspection, Full ROM. negative: Tenderness - Respiratory Respiratory exam: Normal lung sounds bilaterally, Chest wall tenderness (mid chest tender to palpation, no crepitus). negative: Accessory muscle use, Prolonged expiratory, Respiratory distress, Rhonchi, Stridor, Wheezes - Cardiovascular Cardiovascular Exam: Regular rate, Normal rhythm, Normal heart sounds Peripheral Pulses: 2+: Radial (R), Radial (L) - GI/Abdominal GI/Abdominal exam: Soft. negative: Tenderness - Rectal Rectal exam: Deferred - exam: Deferred - Extremities Extremities exam: Normal inspection, Full ROM, Normal capillary refill. negative: Pedal edema, Tenderness - Back Back exam: Reports: Normal inspection, Full ROM. Denies: CVA tenderness (R), CVA tenderness (L), Muscle spasm, Paraspinal tenderness, Rash noted, Tenderness , Vertebral tenderness - Neurological Neurological exam: Alert, Normal gait, Oriented X3, Reflexes normal - Psychiatric Psychiatric exam: Normal affect, Normal mood - Skin Skin exam: Dry, Intact, Normal color, Warm Course Vital Signs 10/16/17 19:23 Temperature 98.5 F Pulse Rate [ 99 H Pulse Ox Probe] Respiratory 20 Rate Blood Pressure 124/86 [Left Arm] Pulse Ox 98 - Reevaluation(s) Reevaluation #1: EKG 1928 Sinus rhythm, intervals normal, axis normal, NS ST changes that are unchanged from the prior 08/05/17 Vitals reviewed No hypoxia or fever 10/16/17 19:46 CTA of the chest 07/02/17 was normal 10/16/17 19:48 10/16/17 20:22 No acute changes on the CXR. Apical thickening as before We discussed home care, and reasons for close follow up Again he was urged to stop smoking as this likely contributes to the return of his symptoms Disposition Disposition: Discharge Clinical Impression: Pleurisy Disposition: Home, Self-Care Condition: (1) Good Instructions: Pleurisy (ED) Additional Instructions: Call your doctor for a recheck this week Be seen if worse, fever, vomiting or concerns Prescriptions: Azithromycin [Zithromax] 250 mg PO DAILY #6 tablet Benzonatate [Tessalon] 1 cap PO Q8H PRN #20 cap PRN Reason: Cough Naproxen [Naprosyn] 500 mg PO BID #20 tablet Forms: Patient Portal Access Time of Disposition: 20:44 Quality - Quality Measures Quality Measures: N/A - Blood Pressure Screening Does Patient Have Any of the Following: No Blood Pressure Classification: Pre-Hypertensive BP Reading Systolic Measurement: 116 Diastolic Measurement: 85 Screening for High Blood Pressure: < Pre-Hypertensive BP, F/U Documented > [ G8950] Pre-Hypertensive Follow-up Interventions: Referral to alternative/primary care provider.
--- NOTE | 2017-10-17 13:51 | RADIOLOGY REPORT ---
EXAM: CHEST, TWO VIEWS HISTORY: COUGH, CHEST PAIN IN THE ANTERIOR RIGHT CHEST, THROBBING FOR A WEEK. TECHNIQUE: PA and lateral views of the chest were obtained. Comparison: Two view chest 08/06/17. FINDINGS: The heart size is normal. No acute infiltrate identified. No pleural effusion or pneumothorax evident. Mild right apical pleural thickening similar to before. IMPRESSION: MILD RIGHT APICAL PLEURAL THICKENING BEFORE. NO ACUTE INFILTRATE IDENTIFIED. JOB NUMBER: [id number] MTDD
== END 2017-10-16 21:10 | disposition home or self-care (01) ==
LOC: ER 19:12
DX: R09.1 Pleurisy (principal); R05 Cough; R06.02 Shortness of breath; F17.210 Nicotine dependence, cigarettes, uncomplicated
CPT/HCPCS: 99284 ×2; 96374; 96375; 71046; 93005; 93010; J1885; J2930

== ENCOUNTER 2017-10-31 19:44 | Emergency (ER) | payer MEDICAID ==
[2017-10-31] MEDS ORDERED: KETOROLAC 30 MG/ML VIAL IM ONE (20:08)
--- NOTE | 2017-10-31 20:15 | Emergency Department Record ---
History of Present Illness - General Chief Complaint: Back Pain/Injury Stated Complaint: BACK PAIN Time Seen by Provider: 10/31/17 20:02 Source: Patient Mode of Arrival: Ambulatory Limitations: No limitations - History of Present Illness Initial Comments: 27 yo male presents to ED for evaluation of midline back pain symptoms that began 3.5 hours ago after assisting a relative with moving a couch and fish tank at his home. Patient reports a history of chronic intermittent low back pain symptoms, denies radiation to the abdomen, lower extremities, numbness, tingling, or weakness to the lower extremities, or urinary retention symptoms. Patient does report taking Voltaren and a heating pad for his symptoms which have not helped significantly. MD Complaint: Back pain Onset/Timin -: Hour(s) Similar Symptoms Previously: Yes Radiation: None Severity scale (1-10): 8 Quality: Aching Consistency: Constant Improves With: Immobilization Worsens With: Movement, Walking Context: While lifting Associated Symptoms: Denies other symptoms Treatments Prior to Arrival: Heat therapy, Other medications - Related Data Home Medications Medication Instructions Recorded Confirmed Last Taken Cyclobenzaprine HCl [Flexeril] 10 mg PO TID 10/31/17 10/31/17 Unknown Diclofenac Sodium [Voltaren-Xr] 50 mg PO BID 10/31/17 10/31/17 Unknown Previous Rx's Medication Instructions Recorded Naproxen [Naprosyn] 500 mg PO Q12H #30 tab 10/31/17 Allergies Allergy/AdvReac Type Severity Reaction Status Date / Time morphine Allergy HIVES Verified 10/31/17 19:53 Travel Screening - Travel/Exposure Within Last 30 Days Have you traveled within the last 30 days?: No - Travel Symptoms Symptom Screening: None Review of Systems Constitutional: Denies: Chills, Fever, Malaise, Night sweats Eyes: Denies: Eye discharge, Eye pain ENT: Denies: Congestion, Ear pain, Epistaxis Respiratory: Denies: Cough, Dyspnea Cardiovascular: Denies: Chest pain, Dyspnea on exertion Endocrine: Denies: Fatigue, Heat or cold intolerance Gastrointestinal: Denies: Abdominal pain, Nausea, Vomiting Genitourinary: Denies: Incontinence, Retention Musculoskeletal: Reports: Back pain. Denies: Arthralgia, Gout, Joint swelling Skin: Denies: Bruising, Change in color Neurological: Denies: Abnormal gait, Confusion, Headache, Seizure Psychiatric: Denies: Anxiety Hematological/Lymphatic: Denies: Anemia, Blood Clots Past Medical History - SOCIAL HISTORY Smoking Status: Light tobacco smoker (<10/day) - RESPIRATORY Hx Respiratory Disorders: Yes Hx Asthma: Yes Comment:: Collapsed lung x3; Pleurisy - CARDIOVASCULAR Hx Cardio Disorders: No - NEURO Hx Neuro Disorders: No - GI Hx GI Disorders: No - Hx Genitourinary Disorders: No - ENDOCRINE Hx Endocrine Disorders: No - MUSCULOSKELETAL Hx Musculoskeletal Disorders: Yes - PSYCH Hx Psych Problems: Yes Hx Depression: Yes Comment:: bipolar - HEMATOLOGY/ONCOLOGY Hx Hematology/Oncology Disorders: No Family Medical History Any Significant Family History?: Yes Family Hx Comment (NOT TO BE USED IN PLACE OF ITEMS BELOW): Mom w/ back problems ; Dad w/AML Physical Exam - General General Appearance: Alert, Oriented x3, Cooperative, Mild distress Limitations: No limitations - Head Head exam: Atraumatic, Normocephalic, Normal inspection Head exam detail: negative: Abrasion, Contusion, Denise's sign, General tenderness, Hematoma, Laceration - Eye Eye exam: Normal appearance. negative: Conjunctival injection, Periorbital swelling, Periorbital tenderness, Scleral icterus - ENT Ear exam: negative: Auricular hematoma, Auricular trauma Nasal Exam: negative: Active bleeding, Discharge, Dried blood, Foreign body Mouth exam: negative: Drooling, Laceration, Muffled voice, Tongue elevation - Neck Neck exam: Normal inspection. negative: Meningismus, Tenderness - Respiratory Respiratory exam: Normal lung sounds bilaterally. negative: Rales, Respiratory distress, Rhonchi, Stridor - Cardiovascular Cardiovascular Exam: Regular rate, Normal rhythm, Normal heart sounds - GI/Abdominal GI/Abdominal exam: Soft. negative: Rebound, Rigid, Tenderness - Rectal Rectal exam: Deferred - exam: Deferred - Extremities Extremities exam: Normal inspection. negative: Calf tenderness, Pedal edema, Tenderness - Back Back exam: Reports: Tenderness (TTP over the lower lumbar region). Denies: CVA tenderness (R), CVA tenderness (L) - Neurological Neurological exam: Alert, Normal gait, Oriented X3 - Psychiatric Psychiatric exam: Normal affect, Normal mood - Skin Skin exam: Normal color. negative: Abrasion Type of lesion: negative: abrasion Course Vital Signs 10/31/17 19:55 Temperature 98.2 F Pulse Rate 93 H Respiratory 16 Rate Blood Pressure 125/72 Pulse Ox 98 - Reevaluation(s) Reevaluation #1: 10/31/17 20:12 Symptoms are non-traumatic in nature, patient is <50 years. As a result, radiographic imaging is not indicated based on his examination. Patient denies any numbness, tingling, lower extremity weakness, or urinary retention symptoms oin examination, and there are no history or clinical examination features that are c/w spinal cord compression syndrome. Will treat the patient symptomatically and reassess. Patient does have Naprosyn and Flexeril at home for his symptoms as well. Reevaluation #2: 10/31/17 20:15 MRI Thoracic Spine: 08/20/17 Mild DJD Thoracic spine MRI Lumbar Spine: 08/20/17 Mild DJD L4/L5, L5/S1 Reevaluation #3: 10/31/17 20:42 Patient reassessed following Toradol administration, reports that his pain symptoms are improved and he appears stable for discharge at this time. Disposition Disposition: Discharge Clinical Impression: Lumbar strain Qualifiers: Encounter type: initial encounter Qualified Code(s): S39.012A - Strain of muscle, fascia and tendon of lower back, initial encounter Disposition: Home, Self-Care Condition: (2) Stable Instructions: Low Back Strain (ED) Additional Instructions: Return to ED if your symptoms worsen or if you have any concerns. Naprosyn as directed. Follow-up with your family doctor in 3-5 days as directed. Prescriptions: Naproxen [Naprosyn] 500 mg PO Q12H #30 tab.dr Forms: Patient Portal Access Time of Disposition: 20:17 Quality - Quality Measures Quality Measures: N/A - Blood Pressure Screening Does Patient Have Any of the Following: No Blood Pressure Classification: Pre-Hypertensive BP Reading Systolic Measurement: 125 Diastolic Measurement: 72 Screening for High Blood Pressure: < Pre-Hypertensive BP, F/U Documented > [ G8950] Pre-Hypertensive Follow-up Interventions: Referral to alternative/primary care provider.
== END 2017-10-31 20:47 | disposition home or self-care (01) ==
LOC: ER 19:44
DX: S39.012A Strain of muscle, fascia and tendon of lower back, initial encounter (principal); X50.0XXA Overexertion from strenuous movement or load, initial encounter; F17.210 Nicotine dependence, cigarettes, uncomplicated; Y93.E9 Activity, other interior property and clothing maintenance
CPT/HCPCS: 96372; 99283; J1885

== ENCOUNTER 2017-11-09 21:53 | Emergency (ER) | payer MEDICAID ==
[2017-11-09] MEDS ORDERED: IBUPROFEN 600 MG TABLET PO ONE (22:17)
--- NOTE | 2017-11-09 22:19 | Emergency Department Record ---
History of Present Illness - General Chief complaint: Pain Stated complaint: BICEP PAIN/BRUISING Time Seen by Provider: 11/09/17 21:55 Source: Patient Mode of Arrival: Ambulatory Limitations: No limitations - History of Present Illness Initial comments: 27 yo male presents to ED for evaluation of sharp pain to the right mid-upper arm that began 15 minutes ago while he was handing a cigarette to his significant other. Patient denies specific trauma or injury, denies weakness, numbness, or tingling symptoms. Patient denies taking anything for pain prior to arrival. Patient also denies health problems at his baseline. MD Complaint: Extremity pain Onset/Timin -: Minutes(s) Location: Right, Arm -: Yes Myalgia Severity scale (1-10): 6 Consistency: Constant Improves with: Nothing Worsens with: Palpation - Related Data Allergies Allergy/AdvReac Type Severity Reaction Status Date / Time morphine Allergy HIVES Verified 10/31/17 19:53 Travel Screening - Travel/Exposure Within Last 30 Days Have you traveled within the last 30 days?: No - Travel Symptoms Symptom Screening: None Review of Systems Constitutional: Denies: Chills, Fever, Malaise, Night sweats Eyes: Denies: Eye discharge, Eye pain ENT: Denies: Congestion, Ear pain, Epistaxis Respiratory: Denies: Cough, Dyspnea Cardiovascular: Denies: Chest pain, Dyspnea on exertion Endocrine: Denies: Fatigue, Heat or cold intolerance Gastrointestinal: Denies: Abdominal pain, Nausea, Vomiting Musculoskeletal: Reports: Myalgia. Denies: Arthralgia, Back pain, Gout, Joint swelling Skin: Reports: Bruising. Denies: Change in color Neurological: Denies: Abnormal gait, Confusion, Headache, Seizure Psychiatric: Denies: Anxiety Hematological/Lymphatic: Denies: Anemia, Blood Clots Past Medical History - SOCIAL HISTORY Smoking Status: Light tobacco smoker (<10/day) - RESPIRATORY Hx Respiratory Disorders: Yes Hx Asthma: Yes Comment:: Collapsed lung x3; Pleurisy - CARDIOVASCULAR Hx Cardio Disorders: No - NEURO Hx Neuro Disorders: No - GI Hx GI Disorders: No - Hx Genitourinary Disorders: No - ENDOCRINE Hx Endocrine Disorders: No - MUSCULOSKELETAL Hx Musculoskeletal Disorders: Yes - PSYCH Hx Psych Problems: Yes Hx Depression: Yes Comment:: bipolar - HEMATOLOGY/ONCOLOGY Hx Hematology/Oncology Disorders: No Family Medical History Any Significant Family History?: Yes Family Hx Comment (NOT TO BE USED IN PLACE OF ITEMS BELOW): Mom w/ back problems ; Dad w/AML Physical Exam - General General Appearance: Alert, Oriented x3, Cooperative Limitations: No limitations - Head Head exam: Atraumatic, Normocephalic, Normal inspection Head exam detail: negative: Abrasion, Contusion, Denise's sign, General tenderness, Hematoma, Laceration - Eye Eye exam: Normal appearance. negative: Conjunctival injection, Periorbital swelling, Periorbital tenderness, Scleral icterus - ENT Ear exam: negative: Auricular hematoma, Auricular trauma Nasal Exam: negative: Active bleeding, Discharge, Dried blood, Foreign body Mouth exam: negative: Drooling, Laceration, Tongue elevation - Neck Neck exam: Normal inspection. negative: Meningismus, Tenderness - Respiratory Respiratory exam: Normal lung sounds bilaterally. negative: Rales, Respiratory distress, Rhonchi, Stridor - Cardiovascular Cardiovascular Exam: Regular rate, Normal rhythm, Normal heart sounds Peripheral Pulses: 3+: Radial (R) - GI/Abdominal GI/Abdominal exam: Soft. negative: Rebound, Rigid, Tenderness - Rectal Rectal exam: Deferred - exam: Deferred - Extremities Extremities exam: Tenderness, Other (Small area of bruising to the mid-upper arm with few small petechiae present. Patient complains of pain with light tough of the skin. Compartment are soft on examination, box toe buffer strength 5/5, strong radial pulse. Biceps function in intact as well.). negative: Calf tenderness, Pedal edema - Back Back exam: Denies: CVA tenderness (R), CVA tenderness (L) - Neurological Neurological exam: Alert, Normal gait, Oriented X3 - Psychiatric Psychiatric exam: Normal affect, Normal mood - Skin Skin exam: Normal color. negative: Abrasion Type of lesion: negative: abrasion Course Vital Signs 11/09/17 22:10 Temperature 98.5 F Pulse Rate [ 72 Pulse Ox Probe] Respiratory 18 Rate Blood Pressure 136/74 [Left Arm] Pulse Ox 98 - Reevaluation(s) Reevaluation #1: 11/09/17 22:24 Patient was seen and examined. Presents to ED for evaluation of right mid-arm pain for 15 minutes, did not take anything for pain [employer]. Patient's extremity is neurologically intact, compartments are soft on examination as well. Presence of very mild bruising and few small petechiae are more consistent with "pinch-type" injury to the upper arm. Patient appears stable for discharge with ibuprofen as needed for his symptoms. Previous records were reviewed, this is the patient's 8th ED visit in 5 months. Patient reports that he does have a PCP that he sees for his asthma symptoms. Patient is moves the extremity well when distracted as well. 11/09/17 22:35 Records were reviewed in [facility] system as well, patient has been seen at [facility] yesterday (no records available) [facility] ED in [place] earlier today for his chronic back pain symptoms. Disposition Disposition: Discharge Clinical Impression: Upper arm pain Qualifiers: Laterality: right Qualified Code(s): M79.621 - Pain in right upper arm Disposition: Home, Self-Care Condition: (2) Stable Instructions: Arm Pain (ED) Additional Instructions: Return to ED if your symptoms worsen or if you have any concerns. Ibuprofen as directed. Follow-up with your family doctor in 3-5 days as directed. Forms: Patient Portal Access Time of Disposition: 22:18 Quality - Quality Measures Quality Measures: N/A - Blood Pressure Screening Does Patient Have Any of the Following: No Blood Pressure Classification: Pre-Hypertensive BP Reading Systolic Measurement: 136 Diastolic Measurement: 74 Screening for High Blood Pressure: < Pre-Hypertensive BP, F/U Documented > [ G8950] Pre-Hypertensive Follow-up Interventions: Referral to alternative/primary care provider.
== END 2017-11-09 22:37 | disposition home or self-care (01) ==
LOC: ER 21:53
DX: M79.621 Pain in right upper arm (principal); F17.210 Nicotine dependence, cigarettes, uncomplicated
CPT/HCPCS: 99283

== ENCOUNTER 2019-05-16 14:55 | Emergency (ER) | payer SELFPAY ==
--- NOTE | 2019-05-16 15:17 | Emergency Department Record ---
History of Present Illness - General Chief complaint: ENT Stated complaint: MOUTH ABCESS Time Seen by Provider: 05/16/19 15:07 Source: Patient, RN notes reviewed Mode of Arrival: Ambulatory - History of Present Illness Initial comments: lower last molar pain and decay and has been hurting for 2 weeks, no swelling of the jaw and he doesn't have a dentist. Onset/Timin -: Week(s) Severity: Moderate Severity scale (1-10): 6 Quality: Aching Consistency: Constant Improves with: None Worsens with: Eating, Swallowing Associated Symptoms: Toothache - Related Data Previous Rx's Medication Instructions Recorded Naproxen [Naprosyn] 500 mg PO Q12H #30 tab.dr 05/16/19 Penicillin V Potassium 500 mg PO QID #40 tablet 05/16/19 Allergies Allergy/AdvReac Type Severity Reaction Status Date / Time morphine Allergy HIVES Verified 05/16/19 14:59 Travel Screening - Travel/Exposure Within Last 30 Days Have you traveled within the last 30 days?: No - Travel/Exposure Within Last Year Have you traveled outside the [place] in the last year?: No - Additonal Travel Details Have you been exposed to anyone with a communicable illness?: No - Travel Symptoms Symptom Screening: None Review of Systems Reviewed: No additional complaints except as noted below Constitutional: Reports: As per HPI. Denies: Chills, Fever, Malaise, Night sweats, Weakness, Weight change Eyes: Reports: As per HPI. Denies: Eye discharge, Eye pain, Photophobia, Vision change ENT: Reports: As per HPI, Dental pain. Denies: Congestion, Ear pain, Epistaxis, Hearing loss, Throat pain Respiratory: Reports: As per HPI. Denies: Cough, Dyspnea, Hemoptysis, Stridor, Wheezes Cardiovascular: Reports: As per HPI. Denies: Arrhythmia, Chest pain, Dyspnea on exertion, Edema, Murmurs, Orthopnea, Palpitations, Paroxysmal nocturnal dyspnea, Rheumatic Fever, Syncope Endocrine: Reports: As per HPI. Denies: Fatigue, Heat or cold intolerance, Polydipsia, Polyuria Gastrointestinal: Reports: As per HPI. Denies: Abdominal pain, Constipation, Diarrhea, Hematemesis, Hematochezia, Melena, Nausea, Vomiting Genitourinary: Reports: As per HPI. Denies: Dysuria, Frequency, Hematuria, Incontinence, Retention, Testicular pain, Testicular mass, Urgency Musculoskeletal: Reports: As per HPI. Denies: Arthralgia, Back pain, Gout, Joint swelling, Myalgia, Neck pain Skin: Reports: As per HPI. Denies: Bruising, Change in color, Change in hair/nails, Lesions, Pruritus, Rash Neurological: Reports: As per HPI. Denies: Abnormal gait, Confusion, Headache, Numbness, Paresthesias, Seizure, Tingling, Tremors, Vertigo, Weakness Psychiatric: Reports: As per HPI. Denies: Anxiety, Auditory hallucinations, Depression, Homicidal thoughts, Suicidal thoughts, Visual hallucinations Hematological/Lymphatic: Reports: As per HPI. Denies: Anemia, Blood Clots, Easy bleeding, Easy bruising, Swollen glands Past Medical History - SOCIAL HISTORY Smoking Status: Light tobacco smoker (<10/day) Alcohol Use: None Drug Use: None - RESPIRATORY Hx Respiratory Disorders: Yes Hx Asthma: Yes Comment:: Collapsed lung x3; Pleurisy - CARDIOVASCULAR Hx Cardio Disorders: No - NEURO Hx Neuro Disorders: No - GI Hx GI Disorders: No - Hx Genitourinary Disorders: No - ENDOCRINE Hx Endocrine Disorders: No - MUSCULOSKELETAL Hx Musculoskeletal Disorders: Yes - PSYCH Hx Psych Problems: Yes Hx Depression: Yes Comment:: bipolar - HEMATOLOGY/ONCOLOGY Hx Hematology/Oncology Disorders: No Family Medical History Any Significant Family History?: Yes Family Hx Comment (NOT TO BE USED IN PLACE OF ITEMS BELOW): Mom w/ back problems ; Dad w/AML Physical Exam - General General Appearance: Alert, Oriented x3, Cooperative, No acute distress - Head Head exam: Normal inspection - Eye Eye exam: Normal appearance, PERRL Pupils: Normal accommodation - ENT ENT exam: Mucous membranes moist, Normal external ear exam, Normal orophraynx, TM's normal bilaterally Ear exam: Normal external inspection. negative: External canal tenderness Nasal Exam: Normal inspection. negative: Discharge, Sinus tenderness Mouth exam: Normal external inspection, Tongue normal Teeth exam: Dental caries, Dental tenderness # (last lower molar right side) Throat exam: Normal inspection. negative: Tonsillar erythema, Tonsillar exudate - Neck Neck exam: Normal inspection, Full ROM. negative: Tenderness - Respiratory Respiratory exam: Normal lung sounds bilaterally. negative: Respiratory distress - Cardiovascular Cardiovascular Exam: Regular rate, Normal rhythm, Normal heart sounds - GI/Abdominal GI/Abdominal exam: Soft, Normal bowel sounds. negative: Tenderness - Rectal Rectal exam: Deferred - exam: Deferred - Extremities Extremities exam: Normal inspection, Full ROM, Normal capillary refill. negative: Tenderness - Back Back exam: Reports: Normal inspection, Full ROM. Denies: Muscle spasm, Rash noted, Tenderness - Neurological Neurological exam: Alert, Normal gait, Oriented X3, Reflexes normal - Psychiatric Psychiatric exam: Normal affect, Normal mood - Skin Skin exam: Dry, Intact, Normal color, Warm Course Vital Signs 05/16/19 15:01 Temperature 98.5 F Pulse Rate 84 Respiratory 18 Rate Blood Pressure 111/81 Pulse Ox 98 - Reevaluation(s) Reevaluation #1: 05/16/19 15:12 discussed with patient he needs to see a dentist Disposition Clinical Impression: Toothache Disposition: Home, Self-Care Condition: (1) Good Instructions: Toothache (ED) Additional Instructions: follow up with a dentist as soon as possible one to 5 days warm water rinses five times a day Prescriptions: Naproxen [Naprosyn] 500 mg PO Q12H #30 tab.dr Penicillin V Potassium 500 mg PO QID #40 tablet Quality - Quality Measures Quality Measures: N/A - Blood Pressure Screening Does Patient Have Any of the Following: No Blood Pressure Classification: Pre-Hypertensive BP Reading Systolic Measurement: 111 Diastolic Measurement: 81 Screening for High Blood Pressure: < Pre-Hypertensive BP, F/U Documented > [G8950] Pre-Hypertensive Follow-up Interventions: Referral to alternative/primary care provider.
== END 2019-05-16 15:26 | disposition home or self-care (01) ==
LOC: ER 14:55
DX: K04.7 Periapical abscess without sinus (principal); F17.210 Nicotine dependence, cigarettes, uncomplicated; F31.9 Bipolar disorder, unspecified
CPT/HCPCS: 99282